=== PATIENT | male | born 1940 | race Caucasian/White ===

== ENCOUNTER 2017-12-29 13:40 | Inpatient (IN) | payer MEDICARE ==
[~2017-12-29] VITALS: Ht 175.3 cm; Wt 83.5 kg
--- NOTE | 2017-12-29 13:50 | NUR ---
BIB RA 89 FROM HOME, BLOOD SUGAR "HI", UNABLE TO TAKE CARE OF HIMSELF/FECES ALL OVER HIS HOME PER PARAMEDICS. PT AAOX3, VSS. DENIES CP, SOB, DIZZINESS, N/V/D @ THIS TIME. WILL CONT TO MONITOR.
--- NOTE | 2017-12-29 13:57 | NUR ---
VISIT FROM [facility];STEPHANE WEISS MORTUARY OPERATIONS MANAGER,[phone], AND HERMINIA MARCH COUNSELOR,RN, . BOTH WANTS TO MAKE SURE THAT PATIENT IS DISCHARGED TO A CARE FACILITY AND NOT GO BACK TO HIS RESIDENCE WHICH THEY DETERMINED NOT FIT TO LIVE IN AND THAT HE IS NOT ABLE TO CARE FOR HIMSELF
[2017-12-29] MEDS ORDERED: IV NS 0.9% 1,000 ML BAG IV ONE (14:30)
[2017-12-29 14:43] LABS: BASOPHILS # (AUTO) 0.1 /CMM (0.0-0.2); EOSINOPHILS % (AUTO) 5.1 % (0.0-6.0); HEMATOCRIT 34 % (39-51); HEMOGLOBIN 11.4 g/dL (13.5-17.5); LYMPHOCYTES # (AUTO) 1.1 /CMM (0.8-4.8); LYMPHOCYTES % (AUTO) 17.8 % (20.0-44.0); MEAN CORPUSCULAR HEMOGLOBIN 29 PG (26.0-33.0); MEAN CORPUSCULAR HGB CONC 34 g/dl (31.0-36.0); MEAN CORPUSCULAR VOLUME 86 fL (80-96); MONOCYTES # (AUTO) 0.3 /CMM (0.1-1.30); MONOCYTES % (AUTO) 5.8 % (2.0-12.0); NEUTROPHILS # (AUTO) 4.2 /CMM (1.8-8.9); NEUTROPHILS % (AUTO) 70.3 % (43.0-81.0); PLATELET COUNT (AUTO) 233 /CMM (150-450); RDW COEFFICIENT OF VARIATION 13.6 (11.5-15.0); RED BLOOD CELL COUNT(AUTO) 3.94 MIL/uL (4.5-6.0)
[2017-12-29 14:56] LABS: ALANINE AMINOTRANSFERASE 20 U/L (12-78); ALBUMIN 3.1 g/dL (3.4-5.0); ALKALINE PHOSPHATASE 142 U/L (46-116); ASPARTATE AMINOTRANSFERASE 21 U/L (15-37); BILIRUBIN,DIRECT 0.1 mg/dL (0.0-0.2); BILIRUBIN,TOTAL 0.4 mg/dL (0.2-1.0); CALCIUM, SERUM 9.3 mg/dL (8.5-10.1); CARBON DIOXIDE 26 mmol/L (21-32); CHLORIDE 98 mmol/L (98-107); CREATININE 0.9 mg/dL (0.6-1.3); POTASSIUM 3.6 mmol/L (3.5-5.1); SODIUM SERUM 131 mmol/L (136-145); TOTAL PROTEIN, SERUM 7.2 g/dL (6.4-8.2); UREA NITROGEN, BLOOD 10 mg/dL (7-18)
[2017-12-29 15:05] LABS: GLUCOSE 469 mg/dL (74-106)
--- NOTE | 2017-12-29 15:28 | NUR ---
PT TO CT VIA WHEELCHAIR.
[2017-12-29] MEDS ORDERED: INSULIN REGULAR, HUMAN 100 UNIT/ML 10 ML VIAL IV ONE (15:30)
--- NOTE | 2017-12-29 16:00 | NUR ---
JUANA was informed by COLEEN Martinez that pt. has a [facility] and APS social workers who stated that pt. will need placement since pt. is unable to care for himself and pt. also had feces all over his home. Pt. is going to be admitted to the med floor. JUANA informed field nurse case manager Mariaelena Harrison and Lashell Lucio LAC DM-STEPHANE WEISS FOREIGN STUDENT ADVISER,[phone], AND HERMINIA CARLSON COUNSELOR,RN,
[2017-12-29] MEDS ORDERED: INSULIN REGULAR, HUMAN 100 UNIT/ML 10 ML VIAL ONE (16:08)
--- NOTE | 2017-12-29 16:38 | NUR ---
CALLED DR OCTAVIO JALLOH FOR PANEL ADMISSION
--- NOTE | 2017-12-29 17:12 | NUR ---
REPAGED DR OCTAVIO JALLOH FOR PANEL ADMISSION
--- NOTE | 2017-12-29 17:42 | NUR ---
PT AAOX3, VSS. DENIES CP, SOB, DIZZINESS, N/V, WEAKNESS, BRIAN @ THIS TIME. PT RESTING REPEATED BS 297, MD AWARE, NO ORDERS @ THIS TIME. WILL CONT TO MONITOR.
--- NOTE | 2017-12-29 18:02 | NUR ---
114-2 TELE Addendum: 12/29/17 at 1803 by KING 114-2 M/S
[2017-12-29] MEDS ORDERED: Z GUARD REMEDY 2 OZ OINT TP PRN (19:30)
[2017-12-29] MEDS ORDERED: ACETAMINOPHEN 325 MG TABLET PO PRN (19:30)
[2017-12-29] MEDS ORDERED: ZOLPIDEM TARTRATE 5 MG TABLET PO PRN (19:30)
[2017-12-29] MEDS ORDERED: HYDROCODONE/APAP 5/325MG 1 EACH TABLET PO PRN (19:30)
[2017-12-29] MEDS ORDERED: MAG HYDROX/AL HYDROX/SIMETH 30 ML UDC PO PRN (19:30)
[2017-12-29] MEDS ORDERED: MAGNESIUM HYDROXIDE 30 ML UDC PO PRN (19:30)
[2017-12-29] MEDS ORDERED: ONDANSETRON HCL/PF 4 MG/2 ML VIAL IVP PRN (19:30)
[2017-12-29] MEDS ORDERED: DEXTROSE 50%-WATER 50 ML DISP.SYRIN IV PRN (19:30)
[2017-12-29 20:00] VITALS: BP 211/84
[2017-12-29] MEDS ORDERED: hydrALAZINE HCL IV 20 MG VIAL IV ONE (20:30)
[2017-12-29] MEDS: ENOXAPARIN SODIUM 40 MG/0.4 ML DISP.SYRIN SQ SCH (20:31)
--- NOTE | 2017-12-29 21:00 | NUR ---
SURVEY AND MAPPING TECHNICIAN NOTES RECEIVED PT FROM ER VIA CHARLIE. PT A/O X3 WITH EPISODE ON CONFUSION. ON ROOM AIR SATURATING WELL. IV ACCESS ON FABIOLA G20 PATENT AND INTACT, NO BLEEDING NOTED. SKIN ASSESSMENT DONE. VITAL SIGNS CHECKED. BLOOD PRESSURE WAS 217/82 VIA AUTOMATIC CUFF. CALLED VP CLINICAL DR REGARDING PT BLOOD PRESSURE ORDERED HYDRALAZINE 5MG IV. WILL CONTINUE TO MONITOR PT CLOSELY.
[2017-12-29] MEDS: *INSULIN REGULAR(HUMULIN R)HUM 100 UNIT/ML VIAL SQ PRN (21:12)
[2017-12-29] MEDS: BLOOD SUGAR DIAGNOSTIC 1 EACH STRIP VI SCH (21:14)
[2017-12-29] MEDS: IV NS 0.9% 1,000 ML IV PRN (21:57)
[2017-12-29 22:10] VITALS: BP 150/80
--- NOTE | 2017-12-29 22:25 | NUR ---
CLOUD ENGAGEMENT PARTNER NOTES PT BLOOD PRESSURE UPON RECHECK IS 150/80MMHG VIA MANUAL CUFF. WILL CONTINUE TO MONITOR.
[2017-12-30] VITALS (9 sets, daily range): BP systolic 144–190; BP diastolic 63–91
--- NOTE | 2017-12-30 00:02 | NUR ---
TRAVELING FREIGHT AGENT NOTES PT GETTING OUT OF BED, REMOVING IV LINES. PT FALL RISK. CALLED WET AND DRY SUGAR BIN OPERATOR REGARDING PT BEHAVIOR. ORDERED BILATERAL SOFT RESTRAINTS.
--- NOTE | 2017-12-30 00:28 | NUR ---
POWER PLANT ELECTRICIAN NOTES PT REFUSING DVT PUMPS
--- NOTE | 2017-12-30 01:00 | NUR ---
FIXTURE RELAMPER NOTES PT CONFUSED TRYING TO GET OUT OF BED. RESTRAINTS ON. V/S STABLE. WILL CONTINUE TO MONITOR PT CLOSELY
--- NOTE | 2017-12-30 04:03 | NUR ---
MARINE SERVICE MANAGER NOTES PT CONFUSED TRYING TO GET OUT OF BED. WITH BILATERAL SOFT RESTRAINTS IN THE WRIST. PRIMARY NURSE STATIONED IN THE ROOM FOR PT SAFETY.
[2017-12-30] MEDS ORDERED: ACETAMINOPHEN 650 MG/SUPP.RECT RC PRN (05:30)
[2017-12-30] MEDS ORDERED: CLONIDINE HCL 0.1 MG TABLET PO ONE (05:30)
[2017-12-30] MEDS: hydrALAZINE HCL IV 20 MG VIAL IV PRN (05:32)
--- NOTE | 2017-12-30 05:33 | NUR ---
MANAGEMENT DEPARTMENT CHAIR NOTES PAGED BACK TENDER INSULATION BOARD REGARDING PT TEMPERATURE OF 101.6 AND BP OF 190/87. ORDERED HYDRALAZINE Q4H SBP >160 AND TYLENOL 650MG SUP. WILL CONTINUE TO MONITOR PT CLOSELY.
--- NOTE | 2017-12-30 06:44 | NUR ---
WINE SPECIALIST NOTES PT THROUGHOUT THE SHIFT, RESTLESS TRYING TO GET OUT OF BED. PT ON RESTRAINTS, REPOSITION Q2H AND Q15MIN CHECK. BLOOD PRESSURE MEDS GIVEN PRN, AND TEMPERATURE WNL. HEAD OF BED ELEVATED. SIDE RAILS UP. PROVIDED COMFORT AND SAFETY. WILL ENDORSE TO THE AM NURSE FOR CONTINUITY OF CARE.
[2017-12-30 06:58] LABS: CARBON DIOXIDE 27 mmol/L (21-32); CHLORIDE 101 mmol/L (98-107); CREATININE 0.9 mg/dL (0.6-1.3); GLUCOSE 275 mg/dL (74-106); MAGNESIUM 1.3 mg/dL (1.8-2.4); PHOSPHORUS 2.7 mg/dL (2.5-4.9); POTASSIUM 3.4 mmol/L (3.5-5.1); SODIUM SERUM 142 mmol/L (136-145); UREA NITROGEN, BLOOD 8 mg/dL (7-18)
[2017-12-30 07:46] LABS: CHOLESTEROL 162 mg/dL (<200); HDL CHOLESTEROL 74 mg/dL (40-60); LDL 84 mg/dL (0-99); THYROID STIMULATING HORMONE 0.573 uIU/mL (0.358-3.74); TRIGLYCERIDES 98 mg/dL (30-150)
[2017-12-30] MEDS: BLOOD SUGAR DIAGNOSTIC 1 EACH STRIP VI SCH ×4 (07:48→22:23)
[2017-12-30] MEDS: INSULIN REGULAR, HUMAN 100 UNIT/ML 3 ML VIAL SQ PRN ×3 (07:49→16:32)
[2017-12-30 07:56] LABS: HEMATOCRIT 40 % (39-51); HEMOGLOBIN 13.4 g/dL (13.5-17.5); MEAN CORPUSCULAR VOLUME 86 fL (80-96); RED BLOOD CELL COUNT(AUTO) 4.62 MIL/uL (4.5-6.0); WHITE BLOOD COUNT (AUTO) 10.8 K/uL (4.3-11.0)
[2017-12-30 07:57] LABS: BASOPHILS % (AUTO) 0.3 % (0.0-2.0); EOSINOPHILS % (AUTO) 0.7 % (0.0-6.0); LYMPHOCYTES % (AUTO) 12.2 % (20.0-44.0); MEAN CORPUSCULAR HEMOGLOBIN 29 PG (26.0-33.0); MEAN CORPUSCULAR HGB CONC 34 g/dl (31.0-36.0); MONOCYTES % (AUTO) 5.4 % (2.0-12.0); NEUTROPHILS % (AUTO) 81.4 % (43.0-81.0); PLATELET COUNT (AUTO) 223 /CMM (150-450); RDW COEFFICIENT OF VARIATION 14.5 (11.5-15.0)
--- NOTE | 2017-12-30 08:00 | NUR ---
MS RN NOTES PATIENT IN BED RESTING. ALERT, ORIENTED TO NAME ONLY CONFUSED. PATIENT ON BILATERAL SOFT WRIST RESTRAINS DUE TO CONFUSION AND PULLING ON LINES, TRYING TO GET OUT OF BED. PATIENT PERIPHERAL IV INTACT PATENT. BED IN LOW LOCKED POSITION. BED IN LOW LOCKED POSITION. PATIENT PLACED NPO DUE TO LETHARGY AWAITING FOR SPEECH THERAPY EVAL. WILL CONTINUE TO MONITOR.
[2017-12-30] MEDS ORDERED: POTASSIUM CHLORIDE 20 MEQ TAB.PRT.SR PO SCH (11:30)
[2017-12-30] MEDS: Magnesium 1GM/D5W 100ML PREMIX 100 ML IV SCH ×4 (11:53→16:14)
--- NOTE | 2017-12-30 16:00 | NUR ---
RN NOTES PATIENT SEEN AND EVALUATED BY DR. LOPEZ ORDERS NOTED AND CARRIED OUT.
[2017-12-30] MEDS: IV NS 0.9% 1,000 ML IV PRN (16:18)
[2017-12-30] MEDS: INSULIN GLARGINE, 100 UNIT/ML CARTRIDGE SQ SCH ×2 (17:06→22:16)
--- NOTE | 2017-12-30 18:50 | NUR ---
RN NOTES PATIENT IN BED RESTING NO SOB OR ACUTE DISTRESS NOTED. ALL DUE MEDICATIONS ADMINISTERED. ALL NEEDS MET. NO ACUTE CHANGES TO PATIENT. WILL ENDORSE CARE TO PM SHIFT.
--- NOTE | 2017-12-30 20:00 | NUR ---
ANTOINETTE RN NOTES RECEIVED REPORT FROM AM NURSE. PATIENT IN BED RESTING. ALERT, ORIENTED TO NAME ONLY CONFUSED. ON JUNIOR SYSTEMS ADMINISTRATOR SR WITH BBB. PATIENT ON BILATERAL SOFT WRIST RESTRAINS DUE TO CONFUSION AND PULLING ON LINES, TRYING TO GET OUT OF BED. PATIENT LEFT HAND PERIPHERAL IV INTACT PATENT WITH IV FLUIDS @100ML/HR NS . BED IN LOW LOCKED POSITION, CALL LIGHT IN REACH. WILL CONTINUE TO MONITOR.
[2017-12-30] MEDS: ENOXAPARIN SODIUM 40 MG/0.4 ML DISP.SYRIN SQ SCH (22:15)
[2017-12-30] MEDS: *INSULIN REGULAR(HUMULIN R)HUM 100 UNIT/ML VIAL SQ PRN (22:17)
[2017-12-30 23:54] LABS: APPEARANCE,URINE CLEAR (CLEAR); BILIRUBIN,URINE NEGATIVE (NEGATIVE); COLOR,URINE YELLOW (YELLOW); KETONES,URINE 2+ (NEGATIVE); LEUKOCYTE ESTERASE ,URINE NEGATIVE (NEGATIVE); NITRITE, URINE NEGATIVE (NEGATIVE); PROTEIN,URINE 2+ mg/dl (NEGATIVE); UGLUCOSE 3+ mg/dL (NEGATIVE); UROBILINOGEN,URINE 0.2 EU/dL (0.2)
[2017-12-31] VITALS: BP 136/66
[2017-12-31 00:08] LABS: BLOOD, URINE TRACE Ery/uL (NEGATIVE)
[2017-12-31 00:09] LABS: BACTERIA,URINE None seen /HPF (None Seen); RBC,URINE 0-2 /HPF (0-2); SQUAMOUS EPITHELIAL CELL,UR Few /HPF (None Seen); WBC,URINE 0-2 /HPF (0-3)
[2017-12-31 00:10] LABS: MUCUS,URINE Few /LPF (None Seen)
[2017-12-31 04:00] VITALS: BP 116/71
[2017-12-31] MEDS: IV NS 0.9% 1,000 ML IV PRN (05:05)
[2017-12-31 06:46] LABS: CALCIUM, SERUM 9.5 mg/dL (8.5-10.1); CARBON DIOXIDE 29 mmol/L (21-32); CHLORIDE 104 mmol/L (98-107); CREATININE 0.7 mg/dL (0.6-1.3); GLUCOSE 124 mg/dL (74-106); MAGNESIUM 1.7 mg/dL (1.8-2.4); SODIUM SERUM 142 mmol/L (136-145); UREA NITROGEN, BLOOD 7 mg/dL (7-18)
[2017-12-31 06:51] LABS: POTASSIUM 2.4 mmol/L (3.5-5.1)
--- NOTE | 2017-12-31 06:55 | NUR ---
RN NOTES GOT A CALL FROM LAB BY TOREY, PATIENT'S POTASSIUM IS 2.4. CALLED MD JENNIFER ADAMS AND LEFT A MASSAGE . WAITING FOR MD'S CALL BACK. Addendum: 12/31/17 at 0711 by ZULEYMA DOYLE RN CHARGE NURSE MOHAMUD AND CATERINA SOMMERS.
--- NOTE | 2017-12-31 07:00 | NUR ---
RN CLOSING NOTED PATIENT IN BED RESTING COMFORTABLY, A/OX2 WITH EPISODES OF CONFUSION. ON PROJECT MANAGER SR WITH BBB. PATIENT ON BILATERAL SOFT WRIST RESTRAINS DUE TO CONFUSION AND PULLING ON LINES. PATIENT LEFT HAND PERIPHERAL IV INTACT PATENT WITH IV FLUIDS NS @100ML/HR NS . ALL NEEDS ARE ATTENDED.BED IN LOW LOCKED POSITION, CALL LIGHT IN REACH. WILL ENDORSE PATIENT CARE TO AM NURSE FOR [facility]. Addendum: 12/31/17 at 0815 by ZULEYMA DOYLE RN PATIENT' POTASSIUM LEVEL IS 2.4 AND IT WAS ENDORSED TO AM SHIFT NURSE.
--- NOTE | 2017-12-31 07:45 | NUR ---
ORTHOPEDIC RADIOLOGIC TECHNOLOGIST OPENING NOTED PATIENT IN BED RESTING COMFORTABLY, A/OX2 WITH EPISODES OF CONFUSION. ON TELE MONITOR SR WITH BBB. PATIENT ON BILATERAL SOFT WRIST RESTRAINS DUE TO CONFUSION AND PULLING ON LINES. PATIENT LEFT HAND PERIPHERAL IV INTACT PATENT WITH IV FLUIDS NS @100ML/HR NS NO S/S OF REDNESS OR INFILTRATION NOTED. ALL SAFETY MEASURES IN PLACE, KEPT CLEAN DRY AND COMFORTABLE, BED IN LOW LOCKED POSITION, CALL LIGHT IN REACH. WILL CONTINUE TO MONITOR
[2017-12-31] MEDS: BLOOD SUGAR DIAGNOSTIC 1 EACH STRIP VI SCH ×2 (07:52→12:09)
[2017-12-31] MEDS: INSULIN REGULAR, HUMAN 100 UNIT/ML 3 ML VIAL SQ PRN ×2 (07:57→12:15)
[2017-12-31 08:00] VITALS: BP 163/75
[2017-12-31] MEDS: Magnesium 1GM/D5W 100ML PREMIX 100 ML IV SCH ×2 (09:52→10:56)
[2017-12-31] MEDS: POTASSIUM CHLORIDE 20 MEQ POWDER PACKET PO SCH ×3 (10:55→12:13)
[2017-12-31] MEDS ORDERED: INSU100V28 SQ (12:38)
[2017-12-31] MEDS ORDERED: *INS REG SQ (12:38)
[2017-12-31] MEDS ORDERED: Blood Sugar Diagnostic VI (12:38)
[2017-12-31] MEDS ORDERED: Insulin Glargine,Hum SQ (12:38)
[2017-12-31] MEDS ORDERED: ENOX40DI SQ (12:38)
--- NOTE | 2017-12-31 13:30 | NUR ---
RN NOTES PT WITH CRISIS TEAM ROB
--- NOTE | 2017-12-31 15:45 | NUR ---
RN NOTES PATIENT WITH ORDERS TO DISCHARGE PT AND TRANSFER TO PSYCH FLOOR WILL CONTINUE TO ASSIST WITH PROCESS
[2017-12-31 16:08] VITALS: BP 176/88
[2017-12-31] MEDS: hydrALAZINE HCL IV 20 MG VIAL IV PRN (16:08)
--- NOTE | 2017-12-31 16:30 | NUR ---
RN NOTES PT WITH EPISODE OF HIGH BP, PT STATING DONT TOUCH RN ASSISTED WITH BP MEDS, ABLE TO REORIENT PT AND ASSIST WITH ADMINISTRATION OF MEDICATION, REPORT GIVEN TO KEENA FOR PSYCH FLOOR ALL DISCHARGE INSTRUCTIONS GIVEN WITH NOTED VERBAL UNDERSTANDING NOTED, IV ACCESS REMOVED AND TWO RN SIGNED PAPERWORK PT REFUSES AND UNABLE TO AT THIS TIME PT REMAINS ON PSYCHIATRIC HOLD
--- NOTE | 2017-12-31 16:45 | NUR ---
ELEVATED MOTORMAN OPENING NOTED PATIENT ASSISTED TO WC, RELAYED TO PT ABOUT TRANSFER TO PSYCH PT CONFUSED TEST BORER HELPER, SIRI AND SECURITY ASSISTED PT TO PSYCHIATRIC UNIT IN STABLE CONDITION Addendum: 12/31/17 at 1745 by SALINA WANG RN CORRECTION OF ENTRY TELE DISCHARGE NOTE
--- NOTE | 2017-12-31 16:45 | NUR ---
PRODUCT PROMOTER SALES PERSON NOTE PATIENT ASSISTED TO WC, RELAYED TO PT ABOUT TRANSFER TO PSYCH PT CONFUSED EMERGENCY DEPARTMENT MANAGER, ASSISTANT FLOOR COVERING PRINTER AND SECURITY ASSISTED PT TO PSYCHIATRIC UNIT IN STABLE CONDITION
[2017-12-31] MEDS ORDERED: ALLA266C2 TP (17:19)
[2017-12-31] MEDS ORDERED: INSU100V7 SQ (17:19)
[2017-12-31] MEDS ORDERED: ZOLP5TAB8 PO (17:19)
[2017-12-31] MEDS ORDERED: HYDR-4075 PO (17:19)
[2017-12-31] MEDS ORDERED: DEXT50DI8 IV (17:19)
[2017-12-31] MEDS ORDERED: ACET325T53 PO (17:19)
== END 2017-12-31 16:35 | DRG 637 ==
LOC: ER 13:41 → TELE1 18:13 → MEDSG1 12-31 10:59
DX: E11.65 Type 2 diabetes mellitus with hyperglycemia (principal); G93.41 Metabolic encephalopathy; E44.1 Mild protein-calorie malnutrition; E87.1 Hypo-osmolality and hyponatremia; I10 Essential (primary) hypertension; D64.9 Anemia, unspecified; E88.09 Other disorders of plasma-protein metabolism, not elsewhere classified; Z68.27 Body mass index [BMI] 27.0-27.9, adult; I45.6 Pre-excitation syndrome; Z98.890 Other specified postprocedural states; Z73.6 Limitation of activities due to disability; F29 Unspecified psychosis not due to a substance or known physiological condition; F01.50 Vascular dementia, unspecified severity, without behavioral disturbance, psychotic disturbance, mood disturbance, and anxiety
CPT/HCPCS: 36415; 70450-TC; 71045-TC; 80048-TC; 80061-TC; 80076-TC; 81000-TC; 82010-TC; 82962-TC; 83735-TC; 84100-TC; 84443-TC; 85025-TC; 87081-TC; 92521; 92526; A4606; J0360; J1650; J1815; J3475; J7030; Z7610

== ENCOUNTER 2017-12-31 15:58 | Inpatient (IN) | payer MEDICARE ==
[~2017-12-31] VITALS: Ht 188 cm; Wt 83.5 kg
[~2017-12-31 15:58] MED LIST: *INS REG SQ; Blood Sugar Diagnostic VI; ENOX40DI SQ; INSU100V28 SQ; Insulin Glargine,Hum SQ
--- NOTE | 2017-12-31 17:15 | NUR ---
ADM NOTE: PATIENT ARRIVED THE UNIT AT 1700 VIA WHEELCHAIR FROM ER. RECEIVED REPORT FROM CATERINA. PATIENT CONFUSED AND DOES NOT KNOW WHY HE IS HERE. PSYCHIATRIST NOTIFIED AND STANDING ORDER PUT IN. MED RECON GETTING INPUT AND WILL NOTIFY BOX WORKER WHEN COMPLETE. ADMISSION PAPERS REFUSED TO SIGN. BELONGINGS CHECKED. CONTRABAND CHECKED. PATIENT DENIES SI/HI DURING ADMISSION. NO FAMILY TO NOTIFY OF ADMISSION. SKIN ASSESSMENT CLEAR. UNIT POLICIES AND PROCEDURES EXPLAINED TO THE PATIENT.
[2017-12-31] MEDS ORDERED: HYDR-4075 PO (17:19)
[2017-12-31] MEDS ORDERED: ALLA266C2 TP (17:19)
[2017-12-31] MEDS ORDERED: ACET325T53 PO (17:19)
[2017-12-31] MEDS ORDERED: DEXT50DI8 IV (17:19)
[2017-12-31] MEDS ORDERED: INSU100V7 SQ (17:19)
[2017-12-31] MEDS ORDERED: ZOLP5TAB8 PO (17:19)
[2017-12-31] MEDS ORDERED: TEMAZEPAM 7.5 MG CAPSULE PO PRN (17:30)
[2017-12-31] MEDS ORDERED: MAG HYDROX/AL HYDROX/SIMETH 30 ML UDC PO PRN (17:30)
[2017-12-31] MEDS ORDERED: ACETAMINOPHEN 325 MG TABLET PO PRN (17:30)
[2017-12-31] MEDS ORDERED: MAGNESIUM HYDROXIDE 30 ML UDC PO PRN (17:30)
[2017-12-31 19:41] VITALS: BP 161/80
[2017-12-31] MEDS: LORAZEPAM 0.5 MG TABLET PO PRN (20:10)
--- NOTE | 2018-01-01 01:27 | NUR ---
noted patient potassium was 2.[address] Lowry and inform regarding patient low potassium no new order received yet. awaiting for dr order.
[2018-01-01] MEDS ORDERED: *INSULIN REGULAR(HUMULIN R)HUM 100 UNIT/ML VIAL SQ PRN (02:00)
[2018-01-01] MEDS ORDERED: Z GUARD REMEDY 2 OZ OINT TP PRN (02:00)
[2018-01-01] MEDS ORDERED: CLONIDINE HCL 0.1 MG TABLET PO PRN (02:00)
[2018-01-01] MEDS ORDERED: DEXTROSE 50%-WATER 50 ML DISP.SYRIN IV PRN ×2 (02:00→03:00)
[2018-01-01] MEDS ORDERED: ACETAMINOPHEN 325 MG TABLET PO PRN (02:00)
[2018-01-01] MEDS ORDERED: INSULIN REGULAR, HUMAN 100 UNIT/ML 3 ML VIAL SQ PRN (02:00)
[2018-01-01] MEDS ORDERED: BLOOD SUGAR DIAGNOSTIC VI SCH (07:30)
[2018-01-01 07:34] LABS: CALCIUM, SERUM 10.3 mg/dL (8.5-10.1); CARBON DIOXIDE 26 mmol/L (21-32); CHLORIDE 101 mmol/L (98-107); CREATININE 0.8 mg/dL (0.6-1.3); GLUCOSE 283 mg/dL (74-106); POTASSIUM 3.4 mmol/L (3.5-5.1); SODIUM SERUM 139 mmol/L (136-145); UREA NITROGEN, BLOOD 8 mg/dL (7-18)
[2018-01-01] MEDS: BLOOD SUGAR DIAGNOSTIC 1 EACH STRIP IN SCH ×4 (07:55→21:55)
[2018-01-01] MEDS: INSULIN REGULAR, HUMAN 100 UNIT/ML 3 ML VIAL SQ PRN ×5 (07:57→22:42)
[2018-01-01] MEDS ORDERED: POTASSIUM CHLORIDE 20 MEQ TAB.PRT.SR PO ONE (08:00)
[2018-01-01] MEDS ORDERED: MAGNESIUM OXIDE 400 MG TABLET PO ONE (08:00)
[2018-01-01] MEDS: LISINOPRIL (10MG) 10 MG TABLET PO SCH (08:18)
[2018-01-01 09:45] VITALS: BP 142/78
--- NOTE | 2018-01-01 15:50 | NUR ---
Initial Discharge Plan: Pt currently resides at [address] [place] [address]; ([phone]). Per the pt, he would like to return home. JUANA will work with the pt and the MD regarding appropriate discharge planning. SW will form a safe and proper discharge.
[2018-01-01 16:00] VITALS: BP 137/75
[2018-01-01 20:00] VITALS: BP 145/78
[2018-01-01] MEDS: MIRTAZAPINE 15 MG TABLET PO SCH (21:55)
[2018-01-01] MEDS: INSULIN GLARGINE, 100 UNIT/ML CARTRIDGE SQ SCH ×2 (21:56→22:41)
[2018-01-01] MEDS ORDERED: INSULIN GLARGINE SQ SCH (22:00)
[2018-01-02] MEDS: BLOOD SUGAR DIAGNOSTIC 1 EACH STRIP IN SCH ×4 (07:37→21:51)
[2018-01-02 08:00] VITALS: BP 159/92
[2018-01-02] MEDS: LISINOPRIL (10MG) 10 MG TABLET PO SCH (09:01)
[2018-01-02] MEDS: INSULIN REGULAR, HUMAN 100 UNIT/ML 3 ML VIAL SQ PRN ×4 (09:06→21:53)
[2018-01-02] MEDS: METFORMIN 500 MG TABLET PO SCH ×2 (11:13→17:30)
[2018-01-02] MEDS: PROPRANOLOL HCL 10 MG TABLET PO SCH ×2 (11:14→21:51)
[2018-01-02 16:00] VITALS: BP 142/81
[2018-01-02 20:00] VITALS: BP 156/84
--- NOTE | 2018-01-02 21:35 | NUR ---
PT REFUSED REMERON 7.5 MG PO, OFFER 3X, EXPLAIN THE RISK AND BENEFITS OF NOT TAKING HIS MEDICATIONS, PT STILL REFUSED. WILL ENDORSE TO NEXT SHIFT NURSE FOR ROBERT.
[2018-01-02] MEDS: MIRTAZAPINE 15 MG TABLET PO SCH (21:51)
[2018-01-02] MEDS: INSULIN GLARGINE, 100 UNIT/ML CARTRIDGE SQ SCH (21:52)
[2018-01-03] MEDS: BLOOD SUGAR DIAGNOSTIC 1 EACH STRIP IN SCH ×4 (07:28→22:08)
[2018-01-03 08:00] VITALS: BP 142/83
[2018-01-03] MEDS: INSULIN REGULAR, HUMAN 100 UNIT/ML 3 ML VIAL SQ PRN ×4 (08:06→22:09)
[2018-01-03] MEDS: LISINOPRIL (10MG) 10 MG TABLET PO SCH (08:32)
[2018-01-03] MEDS: PROPRANOLOL HCL 10 MG TABLET PO SCH ×2 (08:32→22:08)
[2018-01-03] MEDS: METFORMIN 500 MG TABLET PO SCH ×2 (08:32→16:25)
[2018-01-03 16:00] VITALS: BP 127/72
[2018-01-03 20:00] VITALS: BP 152/77
[2018-01-03] MEDS: MIRTAZAPINE 15 MG TABLET PO SCH (22:00)
[2018-01-03] MEDS: INSULIN GLARGINE, 100 UNIT/ML CARTRIDGE SQ SCH (22:08)
[2018-01-04] MEDS: BLOOD SUGAR DIAGNOSTIC 1 EACH STRIP IN SCH ×4 (07:58→21:27)
[2018-01-04 08:00] VITALS: BP 143/89
[2018-01-04] MEDS: INSULIN REGULAR, HUMAN 100 UNIT/ML 3 ML VIAL SQ PRN ×4 (08:00→21:30)
[2018-01-04] MEDS: LISINOPRIL (10MG) 10 MG TABLET PO SCH (08:44)
[2018-01-04] MEDS: PROPRANOLOL HCL 10 MG TABLET PO SCH ×2 (08:44→21:23)
[2018-01-04] MEDS: METFORMIN 500 MG TABLET PO SCH ×2 (08:44→17:08)
[2018-01-04 16:00] VITALS: BP 136/85
[2018-01-04 20:14] VITALS: BP 153/73
[2018-01-04] MEDS: MIRTAZAPINE 15 MG TABLET PO SCH (21:23)
[2018-01-04] MEDS: INSULIN GLARGINE, 100 UNIT/ML CARTRIDGE SQ SCH (21:31)
[2018-01-05] MEDS: BLOOD SUGAR DIAGNOSTIC 1 EACH STRIP IN SCH ×4 (07:59→21:37)
[2018-01-05 08:00] VITALS: BP 169/73
[2018-01-05] MEDS: INSULIN REGULAR, HUMAN 100 UNIT/ML 3 ML VIAL SQ PRN ×4 (08:07→21:35)
[2018-01-05] MEDS: METFORMIN 500 MG TABLET PO SCH ×2 (08:42→16:31)
[2018-01-05] MEDS: LISINOPRIL (10MG) 10 MG TABLET PO SCH (08:42)
[2018-01-05] MEDS: PROPRANOLOL HCL 10 MG TABLET PO SCH ×2 (08:42→20:35)
[2018-01-05 16:00] VITALS: BP 159/71
--- NOTE | 2018-01-05 19:35 | NUR ---
RN NOTES PATIENT IN ACTIVITY ROOM, NO NEEDS MADE. APPEARS COMFORTABLE, BEHAVIOR ACCEPTABLE. TO CONTINUE
[2018-01-05 20:41] VITALS: BP 145/59
[2018-01-05] MEDS: MIRTAZAPINE 15 MG TABLET PO SCH ×2 (21:32→22:00)
[2018-01-05] MEDS: DONEPEZIL 5 MG TABLET PO SCH ×2 (21:32→22:00)
[2018-01-05] MEDS: INSULIN GLARGINE, 100 UNIT/ML CARTRIDGE SQ SCH (21:34)
--- NOTE | 2018-01-05 22:30 | NUR ---
RN NOTES REFUSED TO TAKE REMERON AND ARICEPT AND WANTED TO SPEAK TO PSYCHIATRIST IN AM. BS WAS 339, AGREED TO TAKE REGULAR AND LANTUS INSULIN. SNACKS PROVIDED AFTER INSULIN ADMINISTRATION.
--- NOTE | 2018-01-06 01:34 | NUR ---
RN NOTES AWAKE AT THIS TIME, NO NEEDS MADE. NO COMPLAINTS MADE. CLOSELY WATCHED.
--- NOTE | 2018-01-06 03:25 | NUR ---
RN NOTES AWAKE AT THIS TIME. NO NEEDS MADE. AMBULATING AROUND ROOM. HFR, SAFETY PRECUATIONS EMPHASIZED, COOPERATIVE.
--- NOTE | 2018-01-06 06:52 | NUR ---
RN NOTES, SLEEPING AT THIS TIME, CLOSELY WATCHED
[2018-01-06 08:00] VITALS: BP 144/75
[2018-01-06] MEDS: BLOOD SUGAR DIAGNOSTIC 1 EACH STRIP IN SCH ×4 (08:50→22:12)
[2018-01-06] MEDS: LISINOPRIL (10MG) 10 MG TABLET PO SCH (08:50)
[2018-01-06] MEDS: METFORMIN 500 MG TABLET PO SCH ×2 (08:50→16:18)
[2018-01-06] MEDS: PROPRANOLOL HCL 10 MG TABLET PO SCH ×2 (08:51→21:36)
[2018-01-06] MEDS: INSULIN REGULAR, HUMAN 100 UNIT/ML 3 ML VIAL SQ PRN ×4 (08:53→22:17)
--- NOTE | 2018-01-06 08:53 | NUR ---
[id number]: BLOOD SUGAR IS 371 MG/DL AND GAVE 10 UNITS OF REGULAR INSULIN
--- NOTE | 2018-01-06 12:18 | NUR ---
[id number]: BLOOD SUGAR IS 378 MG/DL AND GAVE 10 UNITS OF REGULAR INSULIN
--- NOTE | 2018-01-06 15:58 | NUR ---
SW met with pt in the activity room for discharge planning purposes after meeting with pts psychiatrist, Dr Limon. Pt was alert and oriented x4. Pt stated, "I need to leave, I have a lot of things to do." SW confirmed pts discharge address [id number] [place] [address] which pt agreed. SW inquired about family/friends to notify of pts discharge plan. Pt stated this SW could contact his sister, Amanda Torres (who is the [employer]) however pt did not know her telephone number. SW conducted a web search for the information however was unable to find information provided by pt. SW discussed transportation options and pt agreed to discharge via taxi. SW will make appropriate arrangements to ensure pt is safely discharged.
[2018-01-06 16:00] VITALS: BP 150/75
--- NOTE | 2018-01-06 17:20 | NUR ---
[id number]: BLOOD SUGAR IS 228 MG/DL AND GAVE 4 UNITS OF REGULAR INSULIN
--- NOTE | 2018-01-06 19:05 | NUR ---
RN NOTES Patient currently in bathroom
--- NOTE | 2018-01-06 19:11 | NUR ---
RN NOTES Patient ambulating inside the room. No complaints as of this time
[2018-01-06 20:16] VITALS: BP 157/81
--- NOTE | 2018-01-06 21:37 | NUR ---
RN NOTES REFUSED TO TAKE REMERON AND ARICEPT AND WANTED TO SPEAK TO PSYCHIATRIST IN AM.
[2018-01-06] MEDS: MIRTAZAPINE 15 MG TABLET PO SCH (21:44)
[2018-01-06] MEDS: DONEPEZIL 5 MG TABLET PO SCH (21:44)
[2018-01-06] MEDS: INSULIN GLARGINE, 100 UNIT/ML CARTRIDGE SQ SCH (22:15)
--- NOTE | 2018-01-06 22:18 | NUR ---
RN NOTES BSL checked,259 mg/DL, 6 units of insulin given per sliding scale
[2018-01-07] MEDS: BLOOD SUGAR DIAGNOSTIC 1 EACH STRIP IN SCH ×4 (07:55→22:44)
[2018-01-07] MEDS: INSULIN REGULAR, HUMAN 100 UNIT/ML 3 ML VIAL SQ PRN ×4 (09:01→22:15)
[2018-01-07] MEDS: METFORMIN 500 MG TABLET PO SCH ×2 (09:03→17:12)
[2018-01-07] MEDS: PROPRANOLOL HCL 10 MG TABLET PO SCH ×2 (09:03→22:11)
[2018-01-07] MEDS: LISINOPRIL (10MG) 10 MG TABLET PO SCH (09:03)
--- NOTE | 2018-01-07 09:41 | NUR ---
SW attempted to search for the pt's sister, Bridget Torres, through the [facility], since the pt stated that she works as a Laborer [employer]ol[employer]. SW was unable to search for the sister to make the contact.
--- NOTE | 2018-01-07 09:42 | NUR ---
Pt will not be discharging today due to a lack of a safety plan per psychiatrist, Dr. Limon.
--- NOTE | 2018-01-07 09:48 | NUR ---
JUANA search Bridget Torreser on [employer] and was blocked from clicking on the search results. JUANA then went onto her cellphone and looked it up and was unable to find a phone number.
--- NOTE | 2018-01-07 09:50 | NUR ---
JUANA looked up the [employer] in [employer] and clicked on the contact us part of the link. JUANA then began scrolling through the different districts. JUANA went to the pt and asked him which district in [place] that his sister works in and he stated that he thinks it is the [facility].
--- NOTE | 2018-01-07 09:52 | NUR ---
JUANA called the [place] [employer] ([phone]) and spoke to Steven after being on hold for 45 minutes. Steven stated that he works in the [facility] but provided a number to reach the pt's sister, Bridget Torres, which was [phone].
--- NOTE | 2018-01-07 10:56 | NUR ---
SW called the number that was provided from the [employer] for Bridget Torres ([phone]), pt's sister, and left a message on the voicemail asking for a call back.
--- NOTE | 2018-01-07 13:54 | NUR ---
JUANA called Oliver ([phone]) from the Department of Mental [facility] and discussed how the pt cannot return home due to the conditions present there. Oliver stated that she had visited his home and that the pt cannot take care of himself. She insisted that the pt be sent to a mcc facility.
--- NOTE | 2018-01-07 14:04 | NUR ---
JUANA sent a referral for the pt to [facility] to the fax number: [phone].
--- NOTE | 2018-01-07 15:50 | NUR ---
JUANA attempted to call the pt's sister, Bridget Torres ([phone]), but Ignacio picked up the phone and stated that this is not Bridget's number and that she did not know who she is.
[2018-01-07 16:50] VITALS: BP 160/94
--- NOTE | 2018-01-07 19:30 | NUR ---
RECEIVED PATIENT IN BED WITH EYES CLOSED; EASILY AROUSABLE. AO X 2, ABLE TO MAKE NEEDS KNOW. AMBULATORY WITH STEADY GAIT. NO ACUTE DISTRESS NOTED. DENIES ANY PAIN AT THIS TIME. SAFETY REMINDERS GIVEN. ON LOW BED WITH BILATERAL UPPER SIDE RAILS UP. CALL LEMUS WITHIN EASY REACH. WILL CONTINUE TO MONITOR. Addendum: 01/07/18 at 2051 by TAVON DURHAM RN CORRECTION: PATIENT IS AO X 3.
[2018-01-07 19:54] VITALS: BP 153/86
[2018-01-07 20:00] VITALS: BP 153/86
[2018-01-07] MEDS: DONEPEZIL 5 MG TABLET PO SCH (22:11)
[2018-01-07] MEDS: MIRTAZAPINE 15 MG TABLET PO SCH (22:11)
[2018-01-07] MEDS: INSULIN GLARGINE, 100 UNIT/ML CARTRIDGE SQ SCH (22:14)
--- NOTE | 2018-01-08 06:44 | NUR ---
PATIENT ASLEEP, EASILY AROUSABLE. RESPIRATIONS EVEN. DUE MEDS GIVEN WITH NO ASE NOTED. NO SYMPTOMS OF HYPER/HYPOGLYCEMIA. PATIENT SLEPT WELL. KEPT CLEAN, DRY, AND COMFORTABLE. SAFETY PRECAUTIONS AND COMFORT MEASURES IN PLACE. WILL GIVE REPORT TO DAY SHIFT FOR CONTINUITY OF CARE.
[2018-01-08] MEDS: BLOOD SUGAR DIAGNOSTIC 1 EACH STRIP IN SCH ×4 (07:54→21:48)
[2018-01-08 08:00] VITALS: BP 153/93
[2018-01-08] MEDS: METFORMIN 500 MG TABLET PO SCH ×3 (09:17→16:58)
[2018-01-08] MEDS: LISINOPRIL (10MG) 10 MG TABLET PO SCH (09:18)
[2018-01-08] MEDS: PROPRANOLOL HCL 10 MG TABLET PO SCH ×2 (09:18→21:48)
[2018-01-08] MEDS: INSULIN REGULAR, HUMAN 100 UNIT/ML 3 ML VIAL SQ PRN ×3 (12:15→21:50)
--- NOTE | 2018-01-08 16:12 | NUR ---
JOSE A ([phone]), manager talent from [facility], came to talk to the pt regarding placement. Pt was told that he cannot return home due to it being unsafe. Pt refused to adhere and stated, "I just want everyone to stop bothering me. I want to go home."
[2018-01-08 16:26] VITALS: BP 137/80
--- NOTE | 2018-01-08 17:00 | NUR ---
Pt. took only 1 tab of Metformin instead of 2 tabs and said it's too much for him. Was explained on the importance and still refusing.
[2018-01-08] MEDS: DONEPEZIL 5 MG TABLET PO SCH (21:48)
[2018-01-08] MEDS: MIRTAZAPINE 15 MG TABLET PO SCH (21:48)
[2018-01-08] MEDS: INSULIN GLARGINE, 100 UNIT/ML CARTRIDGE SQ SCH (21:49)
[2018-01-09] MEDS: BLOOD SUGAR DIAGNOSTIC 1 EACH STRIP IN SCH ×4 (07:52→22:46)
[2018-01-09] MEDS: INSULIN REGULAR, HUMAN 100 UNIT/ML 3 ML VIAL SQ PRN ×4 (08:06→22:51)
[2018-01-09 08:08] VITALS: BP 153/69
[2018-01-09] MEDS: METFORMIN 500 MG TABLET PO SCH ×2 (08:11→16:38)
[2018-01-09] MEDS: LISINOPRIL (10MG) 10 MG TABLET PO SCH (08:12)
[2018-01-09] MEDS: PROPRANOLOL HCL 10 MG TABLET PO SCH ×2 (08:12→21:25)
[2018-01-09 15:56] VITALS: BP 129/77
[2018-01-09] MEDS: TAMSULOSIN 0.4 MG CAP.SR.24H PO SCH (16:38)
[2018-01-09 20:00] VITALS: BP 123/50
[2018-01-09] MEDS: DONEPEZIL 5 MG TABLET PO SCH (21:25)
[2018-01-09] MEDS: MIRTAZAPINE 15 MG TABLET PO SCH (21:27)
[2018-01-09] MEDS: INSULIN GLARGINE, 100 UNIT/ML CARTRIDGE SQ SCH (22:53)
[2018-01-10] MEDS: INSULIN REGULAR, HUMAN 100 UNIT/ML 3 ML VIAL SQ PRN ×4 (06:52→21:19)
[2018-01-10] MEDS: BLOOD SUGAR DIAGNOSTIC 1 EACH STRIP IN SCH ×4 (06:52→21:17)
[2018-01-10 08:00] VITALS: BP 145/70
[2018-01-10] MEDS: LISINOPRIL (10MG) 10 MG TABLET PO SCH (08:29)
[2018-01-10] MEDS: METFORMIN 500 MG TABLET PO SCH ×2 (08:29→17:05)
[2018-01-10] MEDS: TAMSULOSIN 0.4 MG CAP.SR.24H PO SCH (08:29)
[2018-01-10] MEDS: PROPRANOLOL HCL 10 MG TABLET PO SCH ×2 (08:29→20:57)
[2018-01-10 16:00] VITALS: BP 140/77
[2018-01-10 20:00] VITALS: BP 157/67
[2018-01-10] MEDS: DONEPEZIL 5 MG TABLET PO SCH (20:58)
[2018-01-10] MEDS: MIRTAZAPINE 15 MG TABLET PO SCH (21:00)
[2018-01-10] MEDS: INSULIN GLARGINE, 100 UNIT/ML CARTRIDGE SQ SCH (21:16)
[2018-01-11] MEDS: BLOOD SUGAR DIAGNOSTIC 1 EACH STRIP IN SCH ×4 (07:49→21:43)
[2018-01-11 08:00] VITALS: BP 134/69
[2018-01-11] MEDS: TAMSULOSIN 0.4 MG CAP.SR.24H PO SCH (09:11)
[2018-01-11] MEDS: LISINOPRIL (10MG) 10 MG TABLET PO SCH (09:12)
[2018-01-11] MEDS: PROPRANOLOL HCL 10 MG TABLET PO SCH ×2 (09:12→21:42)
[2018-01-11] MEDS: INSULIN REGULAR, HUMAN 100 UNIT/ML 3 ML VIAL SQ PRN ×3 (09:40→22:20)
[2018-01-11] MEDS: METFORMIN 500 MG TABLET PO SCH ×2 (09:42→17:03)
[2018-01-11 16:00] VITALS: BP 120/63
--- NOTE | 2018-01-11 19:40 | NUR ---
GPS RN NOTE: PATIENT RESTING IN BED, NO ACUTE DISTRESS NOTED. BREATHING EVEN AND UNLABORED, NO SOB NOTED. PATIENT CALM AT THIS TIME. NO S/S OF HYPER/HYPOGLYCEMIA NOTED. WILL CONTINUE TO MONITOR.
[2018-01-11 19:59] VITALS: BP 144/64
[2018-01-11] MEDS: MIRTAZAPINE 15 MG TABLET PO SCH (21:43)
[2018-01-11] MEDS: DONEPEZIL 5 MG TABLET PO SCH (21:43)
[2018-01-11] MEDS: INSULIN GLARGINE, 100 UNIT/ML CARTRIDGE SQ SCH (22:20)
--- NOTE | 2018-01-11 22:45 | NUR ---
GPS RN NOTE: PATIENT BLOOD SUGAR LEVEL 235MG/DL, LANTUS 10 UNITS GIVEN PER MD ORDER AND 4 UNITS OF INSULIN PER SLIDING SCALE. NO S/S OF HYPERGLYCEMIA NOTED. WILL CONTINUE TO MONITOR.
--- NOTE | 2018-01-12 06:25 | NUR ---
GPS RN NOTE: PATIENT RESTING IN BED, NO ACUTE DISTRESS NOTED. BREATHING EVEN AND UNLABORED, NO SOB NOTED. PATIENT CALM AND COOPERATIVE THROUGHOUT SHIFT. NO S/S OF HYPER/HYPOGLYCEMIA NOTED. PATIENT SLEPT AT LEAST 9 HOURS. WILL ENDORSE TO DAY NURSE TO CONTINUE WITH PLAN OF CARE.
[2018-01-12 07:05] LABS: BASOPHILS % (AUTO) 0.2 % (0.0-2.0); EOSINOPHILS % (AUTO) 1.3 % (0.0-6.0); HEMATOCRIT 33 % (39-51); HEMOGLOBIN 10.8 g/dL (13.5-17.5); LYMPHOCYTES # (AUTO) 1.2 /CMM (0.8-4.8); LYMPHOCYTES % (AUTO) 11.3 % (20.0-44.0); MEAN CORPUSCULAR HGB CONC 33 g/dl (31.0-36.0); MEAN CORPUSCULAR VOLUME 86 fL (80-96); MONOCYTES # (AUTO) 0.5 /CMM (0.1-1.30); MONOCYTES % (AUTO) 5.2 % (2.0-12.0); NEUTROPHILS # (AUTO) 8.4 /CMM (1.8-8.9); PLATELET COUNT (AUTO) 238 /CMM (150-450); RED BLOOD CELL COUNT(AUTO) 3.84 MIL/uL (4.5-6.0); WHITE BLOOD COUNT (AUTO) 10.3 K/uL (4.3-11.0)
[2018-01-12 07:33] LABS: CALCIUM, SERUM 9.2 mg/dL (8.5-10.1); CARBON DIOXIDE 29 mmol/L (21-32); CHLORIDE 103 mmol/L (98-107); CREATININE 0.8 mg/dL (0.6-1.3); GLUCOSE 219 mg/dL (74-106); POTASSIUM 3.5 mmol/L (3.5-5.1); SODIUM SERUM 141 mmol/L (136-145); UREA NITROGEN, BLOOD 15 mg/dL (7-18)
[2018-01-12 07:42] LABS: MAGNESIUM 1.1 mg/dL (1.8-2.4)
[2018-01-12 08:00] VITALS: BP 161/69
--- NOTE | 2018-01-12 08:00 | NUR ---
GPS/RN BS 230, 4 UNITS REGULAR INSULIN ADMINISTERED PER SLIDING SCALE. WILL CONTINUE TO MONITOR.
[2018-01-12] MEDS: BLOOD SUGAR DIAGNOSTIC 1 EACH STRIP IN SCH ×4 (08:24→21:33)
[2018-01-12] MEDS: INSULIN REGULAR, HUMAN 100 UNIT/ML 3 ML VIAL SQ PRN ×4 (08:25→21:34)
[2018-01-12] MEDS: METFORMIN 500 MG TABLET PO SCH ×2 (08:58→17:39)
[2018-01-12] MEDS: TAMSULOSIN 0.4 MG CAP.SR.24H PO SCH (08:58)
[2018-01-12] MEDS: PROPRANOLOL HCL 10 MG TABLET PO SCH ×2 (08:59→21:25)
[2018-01-12] MEDS: LORAZEPAM 0.5 MG TABLET PO PRN (08:59)
[2018-01-12] MEDS: LISINOPRIL (10MG) 10 MG TABLET PO SCH (08:59)
--- NOTE | 2018-01-12 08:59 | NUR ---
GPS/RN PATIENT IS ANXIOUS, AGITATED AND RESTLESS, ADMINISTERED ATIVAN 0.5 MG , WILL CONTINUE TO MONITOR .
[2018-01-12] MEDS ORDERED: MAGNESIUM OXIDE 400 MG TABLET PO ONE (10:00)
--- NOTE | 2018-01-12 10:05 | NUR ---
On 01/09/18, SW was told by the nurses that the pt's sister had called the unit. JUANA asked the nurses to write down the phone number the next time she called so that the SW can contact her.
--- NOTE | 2018-01-12 11:46 | NUR ---
JUANA called the pt's sister, Bridget Torres ([phone]), and she stated that she believes the pt is able to take care of himself and would like him to stay with her instead of a correction facility.
--- NOTE | 2018-01-12 12:00 | NUR ---
GPS/RN BS 286, 6 UNITS REGULAR INSULIN ADMINISTERED PER SLIDING SCALE. WILL CONTINUE TO MONITOR.
--- NOTE | 2018-01-12 12:25 | NUR ---
Keiry Smith ([phone]), APS social worker health services, called the SW and stated that the pt is not safe to be discharged home unless there is a dentist attendant there present with him. SW stated that the pt is going to be discharged to the sister and that he is going to live with her. APS social worker health services emphasized that the discharge needs to be a safe discharge for this pt.
[2018-01-12 16:00] VITALS: BP_SYST 131; BP_SYST 167; BP_DIAS 82; BP_DIAS 83
--- NOTE | 2018-01-12 17:30 | NUR ---
GPS/RN BS 216, 4 UNITS REGULAR INSULIN ADMINISTERED PER SLIDING SCALE. WILL CONTINUE TO MONITOR.
--- NOTE | 2018-01-12 19:30 | NUR ---
RECEIVED PATIENT IN BED WITH EYES CLOSED; EASILY AROUSABLE. AO X 2-3, ABLE TO MAKE NEEDS KNOWN. NO ACUTE DISTRESS NOTED. DENIES ANY PAIN AT THIS TIME. NO SYMPTOMS OF HYPER/HYPOGLYCEMIA. SAFETY REMINDERS GIVEN. ON LOW BED WITH BILATERAL UPPER SIDE RAILS UP. BED ALARM SET. CALL LEMUS WITHIN EASY REACH. WILL CONTINUE TO MONITOR.
[2018-01-12 19:51] VITALS: BP 151/59
[2018-01-12 20:00] VITALS: BP 151/59
[2018-01-12] MEDS: INSULIN GLARGINE, 100 UNIT/ML CARTRIDGE SQ SCH (21:24)
[2018-01-12] MEDS: MIRTAZAPINE 15 MG TABLET PO SCH (21:25)
[2018-01-12] MEDS: DONEPEZIL 5 MG TABLET PO SCH (21:25)
--- NOTE | 2018-01-13 06:23 | NUR ---
PATIENT ASLEEP, EASILY AROUSABLE. RESPIRATIONS EVEN. NO SIGNS OF PAIN NOTED. NO SYMPTOMS OF HYPER/HYPOGLYCEMIA. DUE MEDS GIVEN WITH NO ASE NOTED. NEEDS ATTENDED. SAFETY PRECAUTIONS AND COMFORT MEASURES IN PLACE. WILL GIVE REPORT TO DAY SHIFT FOR CONTINUITY OF CARE.
[2018-01-13 08:00] VITALS: BP 154/67
--- NOTE | 2018-01-13 08:00 | NUR ---
GPS/RN BS 183,3 UNITS REGULAR INSULIN ADMINISTERED PER SLIDING SCALE. WILL CONTINUE TO MONITOR.
[2018-01-13] MEDS: INSULIN REGULAR, HUMAN 100 UNIT/ML 3 ML VIAL SQ PRN ×4 (08:07→21:56)
[2018-01-13] MEDS: LISINOPRIL (10MG) 10 MG TABLET PO SCH (08:32)
[2018-01-13] MEDS: METFORMIN 500 MG TABLET PO SCH ×2 (08:32→17:03)
[2018-01-13] MEDS: TAMSULOSIN 0.4 MG CAP.SR.24H PO SCH (08:32)
[2018-01-13] MEDS: PROPRANOLOL HCL 10 MG TABLET PO SCH ×2 (08:32→21:34)
[2018-01-13] MEDS: BLOOD SUGAR DIAGNOSTIC 1 EACH STRIP IN SCH ×4 (08:33→21:54)
--- NOTE | 2018-01-13 09:59 | NUR ---
JUANA spoke to Dr. Limon on the phone and he stated that he had seen the pt earlier in the morning and the pt had complied with the treatment plan of being discharged to a SNF.
--- NOTE | 2018-01-13 11:00 | NUR ---
GPS/RN PATIENT REFUSED SHOWER X 3, EXPLAINED RISKS AND BENEFITS.
--- NOTE | 2018-01-13 11:22 | NUR ---
JUANA called the pt's sister, Bridget Torres ([phone]), and she stated that she wanted to speak to the pt first before we discharge him to a care home facility.
--- NOTE | 2018-01-13 12:00 | NUR ---
Bridget Torres ([phone]) called the SW and stated that the pt cannot be discharged to a facility because the pt is refusing and that the only time that she can pick him up is on Friday. She asked the SW to contact the psychiatrist and ask if the pt can be discharged on Friday.
--- NOTE | 2018-01-13 12:06 | NUR ---
JUANA called Dr. Limon and he stated that the pt does not need to be in the hospital until Friday and to contact my line construction supervisor, Elizabeth Patrick.
--- NOTE | 2018-01-13 13:46 | NUR ---
SW spoke to mirror department supervisor, Elizabeth Patrick ([phone]), who stated that per Dr. Limon's request, we cannot keep the pt here for discharge purposes. It was discussed to mention a Medicare Letter of Denial.
--- NOTE | 2018-01-13 13:47 | NUR ---
JUANA called the pt's sister, Bridget Torres ([phone]), and informed her that the pt is being denied and that a Medicare Letter of Denial may be handed to the pt/family. Pt's sister became irritated and verbally aggressive. She began stating that she would get her contracts attorney involved.
--- NOTE | 2018-01-13 14:48 | NUR ---
JUANA spoke to supervisor propellant charge loading, Elizabeth Patrick ([phone]), who spoke to the pt's sister (Bridget Torres) and the psychiatrist. She stated that the pt will be discharged Friday evening.
[2018-01-13 16:00] VITALS: BP 143/61
[2018-01-13] MEDS: glipiZIDE 5 MG TABLET PO SCH (17:03)
--- NOTE | 2018-01-13 17:30 | NUR ---
GPS/RN BS 175, 3 UNITS REGULAR INSULIN ADMINISTERED PER SLIDING SCALE. WILL CONTINUE TO MONITOR.
[2018-01-13 20:24] VITALS: BP 141/74
[2018-01-13] MEDS: DONEPEZIL 5 MG TABLET PO SCH (21:33)
[2018-01-13] MEDS: MIRTAZAPINE 15 MG TABLET PO SCH (21:34)
[2018-01-13] MEDS: INSULIN GLARGINE, 100 UNIT/ML CARTRIDGE SQ SCH (21:57)
[2018-01-14] MEDS: BLOOD SUGAR DIAGNOSTIC 1 EACH STRIP IN SCH ×4 (07:30→21:57)
[2018-01-14 08:00] VITALS: BP 129/56
[2018-01-14] MEDS: glipiZIDE 5 MG TABLET PO SCH ×2 (09:00→16:35)
[2018-01-14] MEDS: TAMSULOSIN 0.4 MG CAP.SR.24H PO SCH (09:01)
[2018-01-14] MEDS: PROPRANOLOL HCL 10 MG TABLET PO SCH ×2 (09:01→21:10)
[2018-01-14] MEDS: METFORMIN 500 MG TABLET PO SCH ×2 (09:01→16:37)
[2018-01-14] MEDS: LISINOPRIL (10MG) 10 MG TABLET PO SCH (09:02)
[2018-01-14] MEDS: INSULIN REGULAR, HUMAN 100 UNIT/ML 3 ML VIAL SQ PRN ×3 (10:13→21:58)
--- NOTE | 2018-01-14 11:30 | NUR ---
JUANA called the pt's sister, Bridget Torres ([phone]), and left a message on her voicemail stating that the JUANA's motor vehicle assembly supervisor has informed her that the pt is going to be discharged to the pt's sister on Friday evening. The SW asked for a call back with the sister's address and home phone number for discharge purposes.
--- NOTE | 2018-01-14 11:32 | NUR ---
JUANA spoke to the pt and informed him that the pt will be discharged on Friday evening to his sister, Bridget Torres.
[2018-01-14 16:00] VITALS: BP 120/53
--- NOTE | 2018-01-14 17:42 | NUR ---
RN NOTE: ACCUCHECK WAS 143. PATIENT BELIEVED HE DID NOT NEED COVERAGE. REFUSED.
[2018-01-14 19:51] VITALS: BP 125/56
[2018-01-14] MEDS: DONEPEZIL 5 MG TABLET PO SCH (21:10)
[2018-01-14] MEDS: MIRTAZAPINE 15 MG TABLET PO SCH (21:10)
[2018-01-14] MEDS: INSULIN GLARGINE, 100 UNIT/ML CARTRIDGE SQ SCH (21:59)
[2018-01-15] MEDS: BLOOD SUGAR DIAGNOSTIC 1 EACH STRIP IN SCH ×4 (07:45→21:43)
[2018-01-15 08:00] VITALS: BP 137/80
[2018-01-15] MEDS: INSULIN REGULAR, HUMAN 100 UNIT/ML 3 ML VIAL SQ PRN ×2 (08:10→12:17)
[2018-01-15] MEDS: TAMSULOSIN 0.4 MG CAP.SR.24H PO SCH (08:27)
[2018-01-15] MEDS: METFORMIN 500 MG TABLET PO SCH ×2 (08:27→16:52)
[2018-01-15] MEDS: PROPRANOLOL HCL 10 MG TABLET PO SCH ×2 (08:27→21:33)
[2018-01-15] MEDS: glipiZIDE 5 MG TABLET PO SCH ×2 (08:28→16:52)
[2018-01-15] MEDS: LISINOPRIL (10MG) 10 MG TABLET PO SCH (08:28)
--- NOTE | 2018-01-15 14:01 | NUR ---
JUANA received a voicemail from the pt's sister, Bridget Torres ([phone]), stating that she will provide a time for the pt to be picked up once she has an answer. She also provided the SW with her address and stated that she was going to be taking the pt to the [facility].
[2018-01-15 16:06] VITALS: BP 113/58
--- NOTE | 2018-01-15 16:27 | NUR ---
JUANA called the pt's sister, Bridget Torres ([phone]), and left a message on her voicemail asking for the discharge time.
[2018-01-15 20:07] VITALS: BP 139/61
[2018-01-15] MEDS: MIRTAZAPINE 15 MG TABLET PO SCH (21:38)
[2018-01-15] MEDS: DONEPEZIL 5 MG TABLET PO SCH (21:38)
[2018-01-15] MEDS: INSULIN GLARGINE, 100 UNIT/ML CARTRIDGE SQ SCH (21:58)
--- NOTE | 2018-01-15 22:00 | NUR ---
GPS RN: Refused Aricept and Remeron stating he has no problem with his memory and he does not have depression but took Inderal and Lantus. Noted with rectal bleeding and patient says the blood is from hemorrhoids. Also he is noted with intermittent productive coughs Addendum: 01/16/18 at 0619 by HECTOR JONES RN Amended: Links added.
[2018-01-16 08:00] VITALS: BP 148/73
[2018-01-16] MEDS: BLOOD SUGAR DIAGNOSTIC 1 EACH STRIP IN SCH ×3 (08:47→17:30)
[2018-01-16] MEDS: TAMSULOSIN 0.4 MG CAP.SR.24H PO SCH (08:47)
[2018-01-16] MEDS: METFORMIN 500 MG TABLET PO SCH ×2 (08:47→16:23)
[2018-01-16] MEDS: glipiZIDE 5 MG TABLET PO SCH ×2 (08:47→16:23)
[2018-01-16] MEDS: PROPRANOLOL HCL 10 MG TABLET PO SCH (08:48)
[2018-01-16] MEDS: LISINOPRIL (10MG) 10 MG TABLET PO SCH (08:48)
--- NOTE | 2018-01-16 12:08 | NUR ---
Bridget Brian ([phone]), pt's sister, called the SW and informed her that she is running late due to getting a late start in the morning. She then provided the SW with the [facility] building that she will be taking the pt to once he is discharged.
--- NOTE | 2018-01-16 12:09 | NUR ---
SW called the [facility] in [facility] ([phone]) and asked for their fax number so that they can have the pt's paperwork when the sister takes him there.
--- NOTE | 2018-01-16 12:15 | NUR ---
JUANA faxed a discharge packet to the [facility] at the fax number: .
--- NOTE | 2018-01-16 15:59 | NUR ---
DENITA SAN ORDERED HOME HEALTH SERVICES AND READING AIDE MADE AWARE.
[2018-01-16 16:00] VITALS: BP 130/74
--- NOTE | 2018-01-16 16:01 | NUR ---
JUANA faxed a home health referral to [facility] to the fax number: [phone].
--- NOTE | 2018-01-16 16:29 | NUR ---
JUANA called the pt's sister, Bridget Torres ([phone]), and left a voicemail stating that the pt's wallet is missing but it was signed by him and a BLACKSMITH APPRENTICE that he refused to have it put in the safe when he came to the geropsych unit. There is also a note saying that he gave the money to someone but we do not know who that is. JUANA stated that she can call the SW on Friday if there are any issues.
--- NOTE | 2018-01-16 16:31 | NUR ---
Initial Discharge Plan: Pt was discharged to his sister, Bridget Torres ([phone]), who [place] at [address] [place] [address]; ([phone]). Pts sister arrived to waste picker the pt. SW sent a referral to to [facility] for the pt upon discharge per Dr. Kidd. Pt appeared to be in a euthymic mood with a distressed affect. The pt was excited to be discharged and out in the real world but was feeling distressed about his situation. Pt denied having any suicidal or homicidal ideation as well as auditory or visual hallucinations upon discharge. Pt was referred to be under the care of psychiatrist, Dr. Osorio Lerner, and chief concierge, Dr. Geovany Padron, who is located [address] [place] [address]; .
--- NOTE | 2018-01-16 17:45 | NUR ---
GPS/RN PT DISCHARGED HOME WITH SISTER Bridget Torres ([phone]) VIA PRIVATE CAR. PRESCRIPTIONS, EXIT CARE INSTRUCTIONS GIVEN AND UNDERSTOOD. PROPERTY RETURNED LISTED IN GPS PROPERTY FORM. NO SI OT HI AT THE TIME OF DISCHARGE NOTED. PT REFUSED TO SIGN EXIT CARE.
== END 2018-01-16 17:45 | disposition home or self-care (01) | DRG 885 ==
LOC: GPS 16:38
PROVIDERS: ADMIT Psychiatry & Neurology Psychiatry; ATTEND Psychiatry & Neurology Psychiatry
DX: F33.9 Major depressive disorder, recurrent, unspecified (principal); F01.50 Vascular dementia, unspecified severity, without behavioral disturbance, psychotic disturbance, mood disturbance, and anxiety; E11.65 Type 2 diabetes mellitus with hyperglycemia; G93.41 Metabolic encephalopathy; E87.1 Hypo-osmolality and hyponatremia; E44.1 Mild protein-calorie malnutrition; F29 Unspecified psychosis not due to a substance or known physiological condition; F41.9 Anxiety disorder, unspecified; D64.9 Anemia, unspecified; Z73.6 Limitation of activities due to disability; I10 Essential (primary) hypertension; N40.0 Benign prostatic hyperplasia without lower urinary tract symptoms; E83.42 Hypomagnesemia; I45.6 Pre-excitation syndrome
CPT/HCPCS: 36415; 80048-TC; 82962-TC; 83735-TC; 84100-TC; 85025-TC; J1815